=== PATIENT | female | born 1975 | race Caucasian/White ===

== ENCOUNTER 2024-06-12 06:39 | Day surgery (SDC) | payer OTHER, SELFPAY | END 2024-06-12 13:18 | disposition home or self-care (01) | LOC: GI 06:39 | PROVIDERS: ATTENDING PHYSICIAN Internal Medicine Gastroenterology; FAMILY PHYSICIAN Family Medicine | DX: Z12.11 Encounter for screening for malignant neoplasm of colon (principal); K64.0 First degree hemorrhoids | CPT/HCPCS: G0121 ==

== ENCOUNTER 2024-10-18 10:48 | Outpatient (RCR) | payer OTHER, SELFPAY ==
[2024-10-11 14:47] VITALS: BP 132/72
[2024-10-11] MEDS: INJECTAFER 265 MG IV (15:00)
[2024-10-18] MEDS: INJECTAFER 265 MG IV (11:17)
[2024-10-18 11:21] VITALS: BP 104/59
[2024-10-18 12:25] VITALS: BP 116/65
[2024-10-18 12:30] VITALS: BP 109/66
== END 2024-10-19 08:41 | disposition home or self-care (01) ==
LOC: OID 10:48
PROVIDERS: ATTENDING PHYSICIAN Family Medicine
DX: D50.0 Iron deficiency anemia secondary to blood loss (chronic) (principal); N92.0 Excessive and frequent menstruation with regular cycle
CPT/HCPCS: 96365; J1439

== ENCOUNTER → 2024-10-31 15:29 | Outpatient (REF) | payer OTHER, SELFPAY | LOC: WDC 15:29 | PROVIDERS: ATTENDING PHYSICIAN Obstetrics & Gynecology; FAMILY PHYSICIAN Family Medicine | DX: Z12.31 Encounter for screening mammogram for malignant neoplasm of breast (principal) | CPT/HCPCS: 77063; 77067 ==

== ENCOUNTER → 2025-03-27 12:19 | Outpatient (REF) | payer OTHER, SELFPAY | LOC: RSP 12:19 | PROVIDERS: ATTENDING PHYSICIAN Physician Assistant Medical; FAMILY PHYSICIAN Family Medicine | DX: R06.02 Shortness of breath (principal); R05.3 Chronic cough; Z88.9 Allergy status to unspecified drugs, medicaments and biological substances; Z68.24 Body mass index [BMI] 24.0-24.9, adult; R06.2 Wheezing | CPT/HCPCS: 71046; 88738; 94010; 94727; 94729 ==